=== PATIENT | female | born 1970 | race Caucasian/White ===

== ENCOUNTER 2018-02-28 08:16 | Emergency (ER) | payer MEDICAID, SELFPAY ==
[2018-02-28 08:19] VITALS: BP 161/77; PULSE 83; RESP 16; TEMP 36.5; O2SAT 100
[2018-02-28] MEDS: Diazepam 5 MG TAB PO (09:47)
[2018-02-28] MEDS: Ketorolac 60 MG/2 ML VIAL IM (09:47)
--- NOTE | 2018-02-28 09:47 | ED.GENADUL_ITS ---
Discharge Plan Disposition Patient Disposition: HOME Condition: Stable Discharge Details Chief Complaint: Nk/Back Pain Clinical Impression: Acute exacerbation of chronic low back pain, Back spasm Primary Care Provider: Unknown,Unknown ED Provider: Dori Le Home Meds and New Rx's Prescriptions: No Action Atorvastatin Calcium 20 MG tablet 20 mg PO DAILY Qty: 90 RF: 3 omeprazole 40 MG capsule,delayed release(DR/EC) 40 mg PO DAILY Qty: 90 RF: 3 levothyroxine 75 MCG tablet 75 mcg PO DAILY Qty: 90 RF: 3 aspirin 81 MG tablet,delayed release (DR/EC) 81 mg PO DAILY Qty: 90 RF: 0 fluoxetine 20 MG capsule 60 mg PO DAILY Qty: 90 RF: 5 mirtazapine 7.5 MG tablet 7.5 mg PO HS Qty: 30 RF: 2 meloxicam 7.5 MG tablet 7.5 mg PO DAILY Qty: 30 RF: 2 acetaminophen [Tylenol Extra Strength] 500 mg Tablet 1,000 mg PO Q6H PRNRF: 0 Medical Decision Making 47-year-old female with previous history of chronic back pain and back spasms who presents for midline lower back pain for the past 6 days. She denies any new injury but states she frequently has pinched nerve or herniated discs that flare up. No urinary or cauda equina symptoms. States does not feel similar to previous kidney stones and declines workup for this at this time. Patient states feels like her usual back spasm/herniated disc flareup. Patient has tenderness to palpation of midline and bilateral lumbar paraspinal region. No buttock tenderness. No focal deficits. Neurovascularly intact. Appears musculoskeletal/spasm. Patient was driven here by boyfriend. We will give a dose of Toradol IM and Valium p.o. 0945 -- pt states tramadol usually works for her back pain - Will send with 2 tabs for home. Prescription for valium given. Patient instructed to follow-up with primary care doctor for reevaluation and return here if worse. HPI General Mode of arrival: ambulatory . Date/Time Provider Initiated Documentation: 02/28/18 09:13 . Limitations to Documentation: no limitations . Information obtained by: patient . HPI Narrative: Patient is a 47-year-old female who presents to the ED with a complaint of midline lower back pain for the past 6 days. She denies any new injury but states she has a history of herniated disc and pinched nerve in her back and occasionally acts up. Patient states the pain radiates down her left leg to her left upper calf. Pain is worse with movement, walking, and better with remaining still and heating pad. Patient states he also has used ice, taken Aleve and Tylenol without relief. States it feels like back spasms. She does have a previous history of kidney stones but states this does not feel similar and she denies any fever, nausea, vomiting, abdominal pain, dysuria, hematuria, frequency, urinary or fecal incontinence, leg weakness or numbness. Past medical history: Osteoporosis, anxiety, depression, GERD Surgical history: , D&C, hysterectomy, tooth extraction Social history: Smokes tobacco, denies alcohol or drugs Medications: See list Allergies: Penicillin PCP: [facility] Related Data Home Medications Medication Instructions Recorded Confirmed levothyroxine 75 mcg PO DAILY #90 tab-cap 01/27/17 02/28/18 omeprazole 40 mg PO DAILY #90 tab-cap 01/27/17 02/28/18 aspirin 81 mg PO DAILY #90 tab-cap 03/05/17 02/28/18 fluoxetine 60 mg PO DAILY #90 tab-cap 04/25/17 02/28/18 mirtazapine 7.5 mg PO HS #30 tab-cap 05/29/17 02/28/18 meloxicam 7.5 mg PO DAILY #30 tab-cap 06/03/17 02/28/18 acetaminophen [Tylenol Extra 1,000 mg PO Q6H PRN 02/28/18 02/28/18 Strength] Previous Rx's Medication Instructions Recorded levothyroxine 75 mcg PO DAILY #90 tab-cap 01/27/17 omeprazole 40 mg PO DAILY #90 tab-cap 01/27/17 aspirin 81 mg PO DAILY #90 tab-cap 03/05/17 fluoxetine 60 mg PO DAILY #90 tab-cap 04/25/17 mirtazapine 7.5 mg PO HS #30 tab-cap 05/29/17 meloxicam 7.5 mg PO DAILY #30 tab-cap 06/03/17 Allergies Allergy/AdvReac Type Severity Reaction Status Date / Time bee venom protein (honey bee) Allergy Severe Unverified 02/28/18 08:23 Penicillins Allergy Hives Unverified 02/28/18 08:23 General Stated Complaint: Nk/Back Pain ROSALIND: 4 Review of Systems Review of Systems All systems reviewed & are unremarkable except as noted in HPI and below Constitutional Reports as per HPI, Denies chills and Denies fever(s) Eyes Denies blurry vision ENT Denies dizziness, Denies sore throat and Denies throat swelling Cardiovascular Denies chest pain and Denies dyspnea Respiratory Denies dyspnea Gastrointestinal Denies abdominal pain, Denies diarrhea and Denies vomiting Genitourinary Denies hematuria and Denies dysuria Musculoskeletal Reports back pain and Denies numbness Integumentary/Breasts Denies lesions and Denies rash Neurologic Denies dizziness and Denies numbness Allergic/Immunologic Denies throat swelling PFS Family History PATERNAL AUNT Personal history of malignant neoplasm Mother No problems noted. Father Heart disease Cerebrovascular accident Sister No problems noted. Brother No problems noted. Grandfather No problems noted. Grandfather Personal history of malignant neoplasm Grandmother Diabetes Heart disease Grandmother Heart disease Social History Smoking/Tobacco Use Status: Current every day Surgical History section Dilation and curettage Hysterectomy Ligation of fallopian tube (~1995) Tooth extraction (~06/2011) Exam Const General: cooperative and healthy appearing Orientation: alert and awake HENMT Head: normal to inspection Ears: hearing grossly normal bilaterally and external ears normal General nose exam: external nose normal Face and sinus: normal facial exam Mouth: oral mucosae normal Eyes General: appearance normal, both eyes and all related structures Eyelids: eyelids normal EOM: EOM intact bilaterally Neck Neck: normal visual inspection Lymphatic: no lymphadenopathy noted Chest Chest: normal inspection of the chest Resp Effort & Inspection: normal respiratory effort and able to speak in complete sentences Auscultation: clear to auscultation bilaterally Cardio Rate: regular rate Rhythm: regular rhythm GI Inspection: normal to inspection Palpation: soft, not firm, no guarding, no hepatosplenomegaly, no masses and nontender Auscultation: normal bowel sounds Back/Spine/Pelvis Back: no CVA tenderness Thoracic/Lumbar Spine: thoracic and lumbar spine normal to inspection, thoraco- lumbar spasm, No thoracic spinal tenderness and lumbar spinal tenderness Skin General skin exam: no rashes or lesions noted Neuro General: alert and awake Cognition: normal cognition Speech: speech normal Gait: normal gait Motor: muscle tone normal throughout and other (Strength 5/5 bilateral lower extremities. Straight leg raise negative bilaterally.) Sensory Exam: no sensory deficits noted DTR's: Rt Patellar: 2+, Lt Patellar: 2+, Rt Ankle: 2+ and Lt Ankle: 2+ Plantar Reflexes: Equivocal: bilateral Extrem General: normal to inspection, full ROM and no edema Psych Appearance: grossly normal Mental Status: mental status grossly normal Speech and Movement: speech and movement normal Affect: normal affect Thought Process: normal Course Vital Signs Temperature 97.7 F 02/28/18 08:19 Pulse 83 02/28/18 08:19 Respiratory Rate 16 02/28/18 08:19 Blood Pressure 161/77 H 02/28/18 08:19 Pulse Oximetry 100 02/28/18 08:19 Temperature 97.7 F 02/28/18 08:19 Temperature Source Temporal Artery Scan 02/28/18 08:19 Pulse 83 02/28/18 08:19 Respiratory Rate 16 02/28/18 08:19 Respiratory Effort Non-Labored 02/28/18 08:22 Blood Pressure 161/77 H 02/28/18 08:19 Blood Pressure Position Sitting 02/28/18 08:19 Pulse Oximetry 100 02/28/18 08:19 Oxygen Delivery Method Room Air 02/28/18 08:19 Oxygen Flow Rate 0 02/28/18 08:19 Pain Level 8 02/28/18 08:27
[2018-02-28] MEDS: traMADol 50 MG TAB 100 MG PO (10:07)
== END 2018-02-28 10:07 | disposition home or self-care (01) ==
LOC: ER 10:10
PROVIDERS: Emergency Provider Physician Assistant
DX: M54.5 Low back pain (principal); M62.830 Muscle spasm of back
CPT/HCPCS: 96372; 99284; J1885

== ENCOUNTER 2018-03-02 12:20 | Emergency (ER) | payer MEDICAID, SELFPAY ==
[2018-03-02 12:25] VITALS: BP 153/97; PULSE 80; RESP 16; TEMP 36.7; O2SAT 98
--- NOTE | 2018-03-02 12:47 | W.ED.GENAD ---
Discharge Plan Disposition Patient Disposition: HOME Condition: Stable Discharge Details Chief Complaint: Nk/Back Pain Clinical Impression: Back pain Reason For Visit: back pain Primary Care Provider: None,None ED Provider: Cathryn Mercedes Home Meds and New Rx's Prescriptions: New prednisone 50 mg tablet 50 mg PO DAILY Qty: 4 RF: 0 cyclobenzaprine 5 mg tablet 5 mg PO TID PRN (Reason: back pain) Qty: 9 RF: 0 Continue Atorvastatin Calcium 20 MG tablet 20 mg PO DAILY Qty: 90 RF: 3 omeprazole 40 MG capsule,delayed release(DR/EC) 40 mg PO DAILY Qty: 90 RF: 3 levothyroxine 75 MCG tablet 75 mcg PO DAILY Qty: 90 RF: 3 aspirin 81 MG tablet,delayed release (DR/EC) 81 mg PO DAILY Qty: 90 RF: 0 fluoxetine 20 MG capsule 60 mg PO DAILY Qty: 90 RF: 5 mirtazapine 7.5 MG tablet 7.5 mg PO HS Qty: 30 RF: 2 acetaminophen [Tylenol Extra Strength] 500 mg Tablet 1,000 mg PO Q6H PRNRF: 0 Discontinued diazepam [Valium] 5 mg tablet 5 mg PO TID PRN (Reason: muscle spasm) Qty: 6 RF: 0 Discharge Instructions Instructions: Back Pain (ED), Lower Back Exercises (ED) Additional Instructions: Please return immediately to the emergency department if you develop any new or worsening symptoms or if you become otherwise concerned. It is extremely important that you attend your scheduled appointment in follow-up for this visit at [facility] on March 16 at 10:45 AM. Discharge Data Discharge Date/Time-TO BE ENTERED AT DEPARTURE: 03/02/18 14:15 Medical Decision Making Andree Quiroz is a 47-year-old woman with history of anxiety, depression, GERD, kidney stones, chronic back pain presenting to the emergency department with acute on chronic pack pain over the past several days, improved with tramadol and Valium after visit 02/28 to the emergency department, now worse again after running out of medications last night. On exam patient is very well and nontoxic appearing. There is no midline tenderness of the thoracic, lumbar, or sacral spine. There is no motor or sensory deficit of the lower extremities. Exam/history is not consistent with cauda equina, acute aortic or other vascular pathology, other cord compression including epidural abscess or epidural hematoma, sepsis, renal stone. The PMS report shows that patient filled prescription for 20 clonazepam on 01/22 which was a 30-day amount. Patient reports that she finished clonazepam 1 month ago. Concern for possible overuse of benzodiazepines at this time. Plan for prednisone, Flexeril, UA, U , post void residual. Care management involved for scheduling closer appointment with PMD. Postvoid residual less than 20 cc per nursing. Lengthy discussion with patient regarding return to emergency department precautions and importance of outpatient follow-up with PCP. Patient is amenable to the plan. Medical Records Medical records reviewed: Yes I reviewed the patient's medical records. Lab Data Lab results reviewed: Yes I reviewed the patient's lab results. Lab results narrative: Urine negative per nursing Laboratory Tests Range/Units 03/02/18 13:20 Urine Color (Yellow) Yellow Urine Clarity Clear Urine pH (5-8) 7.0 Ur Specific [place] (1.005-1.025) 1.020 Urine Protein (Negative) mg/dL Trace H Urine Ketones (Negative) mg/dL Trace H Urine Blood (Negative) Negative Urine Nitrite (Negative) Negative Urine Bilirubin (Negative) Small H Urine Urobilinogen (Up TO 0.2) EU/dL 1.0 H Ur Leukocyte Esterase (Negative) Negative Urine RBC (0-2) 0-2 Urine WBC (0-5) HPF 0-2 Ur Epithelial Cells (Negative) HPF Moderate Urine Crystals (Negative) HPF Negative Urine Bacteria (Negative) HPF Moderate Urine Casts (Negative) LPF Negative Urine Mucus (Negative) Trace Urine Other (Negative) Rare yeast Ur Culture Indicated? No/sq. contamination Urine Glucose (Negative) mg/dL Negative HPI General Mode of arrival: ambulatory. Date/Time Provider Initiated Documentation: 03/02/18 12:47. Limitations to Documentation: no limitations. Information obtained by: patient, RN notes reviewed and old records reviewed. HPI Narrative: Andree Quiroz is a 47-year-old woman with history of anxiety, depression, GERD, kidney stones, chronic back pain presenting to the emergency department with acute on chronic back pain. Patient reports that she is having midline low back pain that radiates down the left leg and up to the right scapula. There was no injury, trauma, or inciting event that she remembers. She is having no other pain, no numbness/tingling, no weakness, no changes in her urinary function, no changes in bowel function, no shortness of breath, no cough, no fevers. No history of IVDU, not on blood thinners. Patient was seen here 2 days ago, 02/28, for same complaint. She was treated at that time with Toradol, 2 tramadol, and prescription for 6 tabs of Valium. Patient reports that she ran out of medications last night. She reports that medications did help her, although her pain seems unchanged at this point. Pain has not changed at all in location or quality since onset. She has an initial appointment with [facility] on March 20. Patient reports that she has had similar back pain multiple times in the past, and this episode has no unusual or atypical features, same location (including radiation down left leg and to left scapula), same quality, same duration, same severity. Patient reports that she is also feeling very anxious. She reports that she is supposed to be taking clonazepam for her anxiety, although she ran out one month ago of her recent prescription and is waiting her appointment with her PCP for new benzo prescription. She denies recent illness, recent travel. Has been eating and drinking as usual. Related Data Home Medications Medication Instructions Recorded Confirmed levothyroxine 75 mcg PO DAILY #90 tab-cap 01/27/17 03/02/18 omeprazole 40 mg PO DAILY #90 tab-cap 01/27/17 03/02/18 aspirin 81 mg PO DAILY #90 tab-cap 03/05/17 03/02/18 fluoxetine 60 mg PO DAILY #90 tab-cap 04/25/17 03/02/18 mirtazapine 7.5 mg PO HS #30 tab-cap 05/29/17 03/02/18 acetaminophen [Tylenol Extra 1,000 mg PO Q6H PRN 02/28/18 03/02/18 Strength] cyclobenzaprine 5 mg PO TID PRN #9 tab 03/02/18 prednisone 50 mg PO DAILY #4 tab 03/02/18 Previous Rx's Medication Instructions Recorded levothyroxine 75 mcg PO DAILY #90 tab-cap 01/27/17 omeprazole 40 mg PO DAILY #90 tab-cap 01/27/17 aspirin 81 mg PO DAILY #90 tab-cap 03/05/17 fluoxetine 60 mg PO DAILY #90 tab-cap 04/25/17 mirtazapine 7.5 mg PO HS #30 tab-cap 05/29/17 cyclobenzaprine 5 mg PO TID PRN #9 tab 03/02/18 prednisone 50 mg PO DAILY #4 tab 03/02/18 Allergies Allergy/AdvReac Type Severity Reaction Status Date / Time bee venom protein (honey bee) Allergy Severe Unverified 03/02/18 12:31 Penicillins Allergy Hives Unverified 03/02/18 12:31 General Stated Complaint: Nk/Back Pain ROSALIND: 4 Review of Systems Review of Systems Constitutional: denies fevers Eyes: denies eye pain ENT: denies facial pain, dental pain, sore throat Cardiovascular: denies chest pain, edema Respiratory: denies SOB, cough GI: denies abdominal pain, vomiting, diarrhea : denies flank pain MSK: reports back pain, denies neck pain, arthralgias, myalgias Skin: denies rash Neuro: denies headaches, lightheadedness, weakness PFSH Social History Smoking/Tobacco Use Status: Current every day Exam Narrative Exam Narrative: Constitutional: well and [id number], pleasant, conversing normally HENT: head atraumatic, normocephalic normal inspection, mucous membranes moist Eyes: conjunctiva normal, sclera normal, pupils 3mm b/l Neck: no stridor, normal ROM, trachea midline Chest: normal inspection Resp: normal work of breathing, LCTAB Cardio: normal rate, normal rhythm, no murmur appreciated GI: abdomen soft, non-tender, non-distended Back: normal inspection, no rash, thoracic, lumbar, sacral spine and paraspinals nontender to palpation, no scapular tenderness Skin: warm, dry, normal color, no rash Neuro: alert, not altered, motor 5 out of 5 bilateral lower extremities, no sensory deficit bilateral lower extremities, otherwise grossly nonfocal, normal tone, normal gait Ext: no edema Psych: normal mood, normal affect, normal behavior Course Vital Signs Temperature 36.7 C 03/02/18 12:25 Pulse 80 03/02/18 12:25 Respiratory Rate 16 03/02/18 12:25 Blood Pressure 153/97 H 03/02/18 12:25 Pulse Oximetry 98 03/02/18 12:25 Temperature 36.7 C 03/02/18 12:25 Temperature Source Temporal Artery Scan 03/02/18 12:25 Pulse 80 03/02/18 12:25 Respiratory Rate 16 03/02/18 12:25 Respiratory Effort Non-Labored 03/02/18 12:37 Blood Pressure 153/97 H 03/02/18 12:25 Blood Pressure Position Sitting 03/02/18 12:25 Pulse Oximetry 98 03/02/18 12:25 Oxygen Delivery Method Room Air 03/02/18 12:25 Oxygen Flow Rate 0 03/02/18 12:25 Pain Level 9 03/02/18 12:38
--- NOTE | 2018-03-02 12:50 | ED.GENADUL_ITS ---
Discharge Plan Disposition Patient Disposition: HOME Condition: Stable Discharge Details Chief Complaint: Nk/Back Pain Clinical Impression: Back pain Reason For Visit: back pain Primary Care Provider: None,None ED Provider: Cathryn Mercedes Home Meds and New Rx's Prescriptions: New prednisone 50 mg tablet 50 mg PO DAILY Qty: 4 RF: 0 cyclobenzaprine 5 mg tablet 5 mg PO TID PRN (Reason: back pain) Qty: 9 RF: 0 Continue Atorvastatin Calcium 20 MG tablet 20 mg PO DAILY Qty: 90 RF: 3 omeprazole 40 MG capsule,delayed release(DR/EC) 40 mg PO DAILY Qty: 90 RF: 3 levothyroxine 75 MCG tablet 75 mcg PO DAILY Qty: 90 RF: 3 aspirin 81 MG tablet,delayed release (DR/EC) 81 mg PO DAILY Qty: 90 RF: 0 fluoxetine 20 MG capsule 60 mg PO DAILY Qty: 90 RF: 5 mirtazapine 7.5 MG tablet 7.5 mg PO HS Qty: 30 RF: 2 acetaminophen [Tylenol Extra Strength] 500 mg Tablet 1,000 mg PO Q6H PRNRF: 0 Discontinued diazepam [Valium] 5 mg tablet 5 mg PO TID PRN (Reason: muscle spasm) Qty: 6 RF: 0 Discharge Instructions Instructions: Back Pain (ED), Lower Back Exercises (ED) Additional Instructions: Please return immediately to the emergency department if you develop any new or worsening symptoms or if you become otherwise concerned. It is extremely important that you attend your scheduled appointment in follow-up for this visit at [facility] on March 16 at 10:45 AM. Discharge Data Discharge Date/Time-TO BE ENTERED AT DEPARTURE: 03/02/18 14:15 Medical Decision Making Andree Quiroz is a 47-year-old woman with history of anxiety, depression, GERD, kidney stones, chronic back pain presenting to the emergency department with acute on chronic pack pain over the past several days, improved with tramadol and Valium after visit 02/28 to the emergency department, now worse again after running out of medications last night. On exam patient is very well and nontoxic appearing. There is no midline tenderness of the thoracic, lumbar, or sacral spine. There is no motor or sensory deficit of the lower extremities. Exam/history is not consistent with cauda equina, acute aortic or other vascular pathology, other cord compression including epidural abscess or epidural hematoma, sepsis, renal stone. The PMS report shows that patient filled prescription for 20 clonazepam on 01/22 which was a 30-day amount. Patient reports that she finished clonazepam 1 month ago. Concern for possible overuse of benzodiazepines at this time. Plan for prednisone, Flexeril, UA, U , post void residual. Care management involved for scheduling closer appointment with PMD. Postvoid residual less than 20 cc per nursing. Lengthy discussion with patient regarding return to emergency department precautions and importance of outpatient follow-up with PCP. Patient is amenable to the plan. Medical Records Medical records reviewed: Yes I reviewed the patient's medical records. Lab Data Lab results reviewed: Yes I reviewed the patient's lab results. Lab results narrative: Urine negative per nursing Laboratory Tests Range/Units 03/02/18 13:20 Urine Color (Yellow) Yellow Urine Clarity Clear Urine pH (5-8) 7.0 Ur Specific [place] (1.005-1.025) 1.020 Urine Protein (Negative) mg/dL Trace H Urine Ketones (Negative) mg/dL Trace H Urine Blood (Negative) Negative Urine Nitrite (Negative) Negative Urine Bilirubin (Negative) Small H Urine Urobilinogen (Up TO 0.2) EU/dL 1.0 H Ur Leukocyte Esterase (Negative) Negative Urine RBC (0-2) 0-2 Urine WBC (0-5) HPF 0-2 Ur Epithelial Cells (Negative) HPF Moderate Urine Crystals (Negative) HPF Negative Urine Bacteria (Negative) HPF Moderate Urine Casts (Negative) LPF Negative Urine Mucus (Negative) Trace Urine Other (Negative) Rare yeast Ur Culture Indicated? No/sq. contamination Urine Glucose (Negative) mg/dL Negative HPI General Mode of arrival: ambulatory . Date/Time Provider Initiated Documentation: 03/02/18 12:47 . Limitations to Documentation: no limitations . Information obtained by: patient, RN notes reviewed and old records reviewed . HPI Narrative: Andree Quiroz is a 47-year-old woman with history of anxiety, depression, GERD, kidney stones, chronic back pain presenting to the emergency department with acute on chronic back pain. Patient reports that she is having midline low back pain that radiates down the left leg and up to the right scapula. There was no injury, trauma, or inciting event that she remembers. She is having no other pain, no numbness/tingling, no weakness, no changes in her urinary function, no changes in bowel function, no shortness of breath, no cough, no fevers. No history of IVDU, not on blood thinners. Patient was seen here 2 days ago, 02/28, for same complaint. She was treated at that time with Toradol, 2 tramadol, and prescription for 6 tabs of Valium. Patient reports that she ran out of medications last night. She reports that medications did help her, although her pain seems unchanged at this point. Pain has not changed at all in location or quality since onset. She has an initial appointment with [facility] on March 20. Patient reports that she has had similar back pain multiple times in the past, and this episode has no unusual or atypical features, same location (including radiation down left leg and to left scapula), same quality, same duration, same severity. Patient reports that she is also feeling very anxious. She reports that she is supposed to be taking clonazepam for her anxiety, although she ran out one month ago of her recent prescription and is waiting her appointment with her PCP for new benzo prescription. She denies recent illness, recent travel. Has been eating and drinking as usual. Related Data Home Medications Medication Instructions Recorded Confirmed levothyroxine 75 mcg PO DAILY #90 tab-cap 01/27/17 03/02/18 omeprazole 40 mg PO DAILY #90 tab-cap 01/27/17 03/02/18 aspirin 81 mg PO DAILY #90 tab-cap 03/05/17 03/02/18 fluoxetine 60 mg PO DAILY #90 tab-cap 04/25/17 03/02/18 mirtazapine 7.5 mg PO HS #30 tab-cap 05/29/17 03/02/18 acetaminophen [Tylenol Extra 1,000 mg PO Q6H PRN 02/28/18 03/02/18 Strength] cyclobenzaprine 5 mg PO TID PRN #9 tab 03/02/18 prednisone 50 mg PO DAILY #4 tab 03/02/18 Previous Rx's Medication Instructions Recorded levothyroxine 75 mcg PO DAILY #90 tab-cap 01/27/17 omeprazole 40 mg PO DAILY #90 tab-cap 01/27/17 aspirin 81 mg PO DAILY #90 tab-cap 03/05/17 fluoxetine 60 mg PO DAILY #90 tab-cap 04/25/17 mirtazapine 7.5 mg PO HS #30 tab-cap 05/29/17 cyclobenzaprine 5 mg PO TID PRN #9 tab 03/02/18 prednisone 50 mg PO DAILY #4 tab 03/02/18 Allergies Allergy/AdvReac Type Severity Reaction Status Date / Time bee venom protein (honey bee) Allergy Severe Unverified 03/02/18 12:31 Penicillins Allergy Hives Unverified 03/02/18 12:31 General Stated Complaint: Nk/Back Pain ROSALIND: 4 Review of Systems Review of Systems Constitutional: denies fevers Eyes: denies eye pain ENT: denies facial pain, dental pain, sore throat Cardiovascular: denies chest pain, edema Respiratory: denies SOB, cough GI: denies abdominal pain, vomiting, diarrhea : denies flank pain MSK: reports back pain, denies neck pain, arthralgias, myalgias Skin: denies rash Neuro: denies headaches, lightheadedness, weakness PFSH Social History Smoking/Tobacco Use Status: Current every day Exam Narrative Exam Narrative: Constitutional: well and [id number], pleasant, conversing normally HENT: head atraumatic, normocephalic normal inspection, mucous membranes moist Eyes: conjunctiva normal, sclera normal, pupils 3mm b/l Neck: no stridor, normal ROM, trachea midline Chest: normal inspection Resp: normal work of breathing, LCTAB Cardio: normal rate, normal rhythm, no murmur appreciated GI: abdomen soft, non-tender, non-distended Back: normal inspection, no rash, thoracic, lumbar, sacral spine and paraspinals nontender to palpation, no scapular tenderness Skin: warm, dry, normal color, no rash Neuro: alert, not altered, motor 5 out of 5 bilateral lower extremities, no sensory deficit bilateral lower extremities, otherwise grossly nonfocal, normal tone, normal gait Ext: no edema Psych: normal mood, normal affect, normal behavior Course Vital Signs Temperature 36.7 C 03/02/18 12:25 Pulse 80 03/02/18 12:25 Respiratory Rate 16 03/02/18 12:25 Blood Pressure 153/97 H 03/02/18 12:25 Pulse Oximetry 98 03/02/18 12:25 Temperature 36.7 C 03/02/18 12:25 Temperature Source Temporal Artery Scan 03/02/18 12:25 Pulse 80 03/02/18 12:25 Respiratory Rate 16 03/02/18 12:25 Respiratory Effort Non-Labored 03/02/18 12:37 Blood Pressure 153/97 H 03/02/18 12:25 Blood Pressure Position Sitting 03/02/18 12:25 Pulse Oximetry 98 03/02/18 12:25 Oxygen Delivery Method Room Air 03/02/18 12:25 Oxygen Flow Rate 0 03/02/18 12:25 Pain Level 9 03/02/18 12:38
[2018-03-02 13:36] LABS: Bilirubin Small (Negative); Blood Negative (Negative); Clarity Clear; Glucose Negative (Negative); Ketones Trace mg/dL (Negative); Leukocyte Esterase Negative (Negative); Nitrite Negative (Negative)
[2018-03-02 13:46] LABS: RBC 0-2 (0-2); WBC 0-2 HPF (0-5)
[2018-03-02 13:47] LABS: Bacteria Moderate HPF (Negative); C & S Indicated? No/Sq. Contamination; Casts Negative LPF (Negative); Crystals Negative HPF (Negative); Epithelial Cells Moderate HPF (Negative); Mucus Trace (Negative); Other Cells Rare Yeast (Negative)
[2018-03-02] MEDS: predniSONE 20 MG TAB 60 MG PO (13:55)
[2018-03-02] MEDS: Cyclobenzaprine 10 MG TAB PO (13:55)
[2018-03-02] MEDS: Ondansetron O.D.T. 4 MG TABEF PO (14:10)
--- NOTE | 2018-03-02 14:13 | PDOC.ERCMPRO ---
- If Service Date Differs Date of service: 03/02/18 Time of Service: 14:13 Care Management Progress Note CM received notification from Dr. Summer Mercedes that Andree was in the ER this weekend and back today due to back pain. Dr. Mercedes requested that this telegraphic typewriter mechanic contact Dr. Cali's office as he was recently Andree's PCP and she is changing practices. Dr. Cali is unavailable today, however this telegraphic typewriter mechanic spoke with Jahaira, Emergency Line [facility], whom states that it is noted that Andree was last seen at [facility] in May and transferred care as she moved to [place] and started at [facility]. CM spoke with Sari [facility], whom transferred this telegraphic typewriter mechanic to the triage line. The triage line notified this telegraphic typewriter mechanic that Andree called [facility] this morning and requested an earlier appointment, this telegraphic typewriter mechanic was also notified that Andree has received care through [facility] as well in the past and is currently requesting pain medications from [facility]. CM was able to obtain an earlier appointment for Saturday 03/10 @ [id number] with Sana Manzo. CM notified Dr. Summer Mercedes of the above.
--- NOTE | 2018-03-02 14:18 | CMPROGNOTE_ITS ---
- If Service Date Differs Date of service: 03/02/18 Time of Service: 14:13 Care Management Progress Note CM received notification from Dr. Summer Mercedes that Andree was in the ER this weekend and back today due to back pain. Dr. Mercedes requested that this telegraphic typewriter repairer contact Dr. Cali's office as he was recently Andree's PCP and she is changing practices. Dr. Cali is unavailable today, however this telegraphic typewriter repairer spoke with Jahaira, Emergency Line [facility], whom states that it is noted that Andree was last seen at [facility] in May and transferred care as she moved to [place] and started at [facility]CP. CM spoke with Sari [facility], whom transferred this telegraphic typewriter repairer to the triage line. The triage line notified this telegraphic typewriter repairer that Andree called [facility] this morning and requested an earlier appointment, this telegraphic typewriter repairer was also notified that Andree has received care through [facility] as well in the past and is currently requesting pain medications from [facility]. CM was able to obtain an earlier appointment for Saturday 03/10 @ [id number] with Sana Manzo. CM notified Dr. Summer Mercedes of the above.
== END 2018-03-02 14:15 | disposition home or self-care (01) ==
LOC: ER 14:38
PROVIDERS: Emergency Provider Student in an Organized Health Care Education/Training Program
DX: M54.5 Low back pain (principal); G89.29 Other chronic pain
CPT/HCPCS: 81025; 99283; 81003; 81015; J7512

== ENCOUNTER 2018-04-02 14:33 | Emergency (ER) | payer MEDICAID, SELFPAY ==
[2018-04-02 14:41] VITALS: BP 142/96; PULSE 94; RESP 16; TEMP 36.7; O2SAT 98
--- NOTE | 2018-04-02 15:08 | NUR.NOTE ---
Nursing Note: THis tag writer triage patient and placed her in the RWR telling her it is busy in the ER and we will get to her as soon as we can. Registration witnessed patient elope from the ER on the phone out the ER doors. Patient not longer in the RWR or in the waiting room.
== END 2018-04-02 15:08 | disposition left before discharge ==
LOC: ER 14:56
DX: Z53.21 Procedure and treatment not carried out due to patient leaving prior to being seen by health care provider (principal)

== ENCOUNTER 2018-04-06 13:48 | Emergency (ER) | payer MEDICAID, SELFPAY ==
[2018-04-06 14:11] VITALS: BP 151/84; PULSE 95; RESP 16; TEMP 37.1; O2SAT 97
[2018-04-06 14:42] LABS: Abs Immature Grans 0.02 k/cumm (0.0-0.09); Absolute Basophil Count 0.16 k/cumm (0.0-0.2); Absolute Eosinophil Count 0.62 k/cumm (0.0-0.7); Absolute Lymphocyte Count 3.65 k/cumm (1.2-3.4); Absolute Monocyte Count 0.66 k/cumm (0.11-0.7); Absolute Neutrophil Count 5.66 k/cumm (1.2-6.7); Basophils % 1.5; Eosinophils % 5.8; HCT 41.6 % (36.0-46.0); HGB 13.5 g/dL (12.0-15.5); Immature Grans % 0.2; Lymphocytes % 33.9; Mean Corp. HGB Concentration 32.5 g/dL (32.0-36.0); Mean Corpuscular Hemoglobin 25.9 pg (27.0-33.0); Mean Corpuscular Volume 79.8 fL (80-95); Mean Platelet Volume 10.6 fL (8.0-11.0); Monocytes % 6.1; Neutrophils % 52.5; Platelet Count 218 x1000/uL (130-400); RBC 5.21 m/cumm (4.00-5.20); RBC Distribution Width 15.4 % (11.7-14.6); White Blood Cell Count 10.77 k/cumm (4.4-10.8)
--- NOTE | 2018-04-06 14:48 | DI.CT_ITS ---
SYMPTOMS/DIAGNOSIS: DIZZY, WEAKNESS NONCONTRAST HEAD CT: There are no prior comparison exams. No intracranial hemorrhage, mass or infarct is seen. The ventricles are normal in size. The orbits are unremarkable. The visualized portions of the sinuses and mastoid air cells appear clear. IMPRESSION: Negative head CT.
[2018-04-06] MEDS: Meclizine 25 MG TAB PO (14:52)
[2018-04-06] MEDS: Normal Saline 1,000 ML 1000 ML IV (14:54)
[2018-04-06 15:18] LABS: ALT 61 U/L (12-78); AST 41 U/L (15-37); Albumin 4.1 g/dL (3.4-5.0); Alkaline Phosphatase 85 U/L (46-116); BUN 8 mg/dL (7-18); Bilirubin, Total 0.4 mg/dL (0.2-1.0); CREATININE 0.86 mg/dL (0.55-1.02); Calcium 9.5 mg/dL (8.5-10.1); Chloride 104 mmol/L (98-107); Glucose 102 mg/dL (70-100); Potassium 3.4 mmol/L (3.5-5.1); Sodium 143 mmol/L (136-145); TSH (W/Ref FT4) 1.51 uIU/mL (0.358-3.74); Total Protein 7.9 g/dL (6.4-8.2)
[2018-04-06 15:22] LABS: Troponin I < 0.02 ng/mL (0.00-0.06)
[2018-04-06 15:40] VITALS: PULSE 83; RESP 16
[2018-04-06 15:46] VITALS: BP 142/129; PULSE 53; O2SAT 99
[2018-04-06 15:50] VITALS: BP 136/98; PULSE 81; O2SAT 100
[2018-04-06 15:51] VITALS: O2SAT 99
--- NOTE | 2018-04-06 16:04 | ED.GENADUL_ITS ---
Discharge Plan Disposition Patient Disposition: HOME Condition: Good Discharge Details Chief Complaint: Dizzy/Sync Clinical Impression: Acute dehydration, Dizziness Reason For Visit: weakness Primary Care Provider: None,None ED Provider: Ed Wakefield Home Meds and New Rx's Prescriptions: No Action Atorvastatin Calcium 20 MG tablet 20 mg PO DAILY Qty: 90 RF: 3 omeprazole 40 MG capsule,delayed release(DR/EC) 40 mg PO DAILY Qty: 90 RF: 3 levothyroxine 75 MCG tablet 75 mcg PO DAILY Qty: 90 RF: 3 aspirin 81 MG tablet,delayed release (DR/EC) 81 mg PO DAILY Qty: 90 RF: 0 fluoxetine 20 MG capsule 60 mg PO DAILY Qty: 90 RF: 5 mirtazapine 7.5 MG tablet 7.5 mg PO HS Qty: 30 RF: 2 acetaminophen [Tylenol Extra Strength] 500 mg Tablet 1,000 mg PO Q6H PRNRF: 0 cyclobenzaprine 5 mg tablet 5 mg PO TID PRN (Reason: back pain) Qty: 9 RF: 0 methocarbamol 500 mg Tablet 500 mg PO Q4H PRN PRNRF: 0 Discharge Instructions Instructions: Dehydration (ED), Dizziness (ED) Additional Instructions: Please drink 8-12 cups of water per day. Please avoid energy drinks. If you notice any worsening of your symptoms, or any new symptoms such as vomiting, diarrhea, fever, chills, shortness of breath, chest pain, numbness, weakness, or fainting , please return immediately to the emergency department for reevaluation. Please follow up with your primary care provider as soon as possible for reassessment and reevaluation. As always, it was a pleasure participating in your medical care today. Discharge Data Discharge Date/Time-TO BE ENTERED AT DEPARTURE: 04/06/18 16:09 Medical Decision Making This is a 47-year-old female who presents for evaluation of dizziness, mild lightheadedness, that occurred roughly 1 hour ago after drinking an energy drink. Patient's physical exam demonstrates no significant neurologic deficits, no abnormalities. She does describe a room spinning sensation with her dizziness and she denies any syncope. The patient did appear mild to moderately dehydrated on exam. Vitals are stable and reassuring. Patient was rehydrated. EKG demonstrates no significant abnormalities. CT scan of the head is benign with no evidence of abnormalities. Laboratory workup demonstrates normal electrolytes, normal renal function negative troponin and normal TSH. On reassessment the patient is feeling much better. I feel her symptoms may be secondary to combination of dehydration, her energy drink, and may be mild peripheral vertigo. With resolution of her symptoms I feel she can be safely discharged home with close follow-up. I see no signs of neurologic deficit or signs or symptoms concerning for stroke. We discussed red flags which to return, the importance of decreasing caffeine intake, and staying well-hydrated. I have extensively reviewed the treatment plan and discharge instructions with the patient and their family. I have addressed all patient concerns at this time. The patient and family was made aware of what symptoms to monitor for that would warrant a return to the emergency department. Discussed the plan with the patient and family, they demonstrate verbal understanding and agreement with our assessment and plan at this time. EKG 14: 07 Rate 91, QTc slightly prolonged at 480, UT 152, QRS 104, sinus rhythm, no significant ST elevations or depressions, no T wave inversions. No Q waves. No delta wave or epsilon wave. No evidence of arrhythmia. Per Dr. Thomas CT scan of the head is negative NONCONTRAST HEAD CT: There are no prior comparison exams. No intracranial hemorrhage, mass or infarct is seen. The ventricles are normal in size. The orbits are unremarkable. The visualized portions of the sinuses and mastoid air cells appear clear. IMPRESSION: Negative head CT. HPI General Date/Time Provider Initiated Documentation: 04/06/18 14:31 . HPI Narrative: This is a 47-year-old female with a past medical history of diabetes, thyroid disease, and anxiety who presents today for evaluation of dizziness. Patient states that she recently stopped drinking caffeine then today roughly 1- 2 hours ago she had a or G drink. Not too long after this while she was sitting in the car with her she became dizzy, lightheaded, and had a room spinning sensation. This lasted roughly 1 hour. He came to the ER for further evaluation. At the time of arrival symptoms had resolved. There was no associated tinnitus. She denies headache, vision changes, chest pain, shortness of breath, numbness, tingling, or weakness. She denies any nausea, vomiting, or diarrhea. She has not had symptoms like this in the past. Patient does admit to feeling slightly fatigued, but denies any other modifying factors. She denies any recent history of surgery, IV illicit drug use, or pertinent family history. Past surgical history is positive for hysterectomy. Related Data Home Medications Medication Instructions Recorded Confirmed levothyroxine 75 mcg PO DAILY #90 tab-cap 01/27/17 04/06/18 omeprazole 40 mg PO DAILY #90 tab-cap 17 04/06/18 aspirin 81 mg PO DAILY #90 tab-cap 03/05/17 04/06/18 fluoxetine 60 mg PO DAILY #90 tab-cap 04/25/17 04/06/18 mirtazapine 7.5 mg PO HS #30 tab-cap 05/29/17 04/06/18 acetaminophen [Tylenol Extra 1,000 mg PO Q6H PRN 02/28/18 04/06/18 Strength] cyclobenzaprine 5 mg PO TID PRN #9 tab 03/02/18 04/06/18 methocarbamol 500 mg PO Q4H PRN PRN 04/06/18 04/06/18 Previous Rx's Medication Instructions Recorded levothyroxine 75 mcg PO DAILY #90 tab-cap 01/27/17 omeprazole 40 mg PO DAILY #90 tab-cap 01/27/17 aspirin 81 mg PO DAILY #90 tab-cap 03/05/17 fluoxetine 60 mg PO DAILY #90 tab-cap 04/25/17 mirtazapine 7.5 mg PO HS #30 tab-cap 05/29/17 cyclobenzaprine 5 mg PO TID PRN #9 tab 03/02/18 Allergies Allergy/AdvReac Type Severity Reaction Status Date / Time bee venom protein (honey bee) Allergy Severe Unverified 04/02/18 14:48 Penicillins Allergy Hives Unverified 04/02/18 14:48 General Stated Complaint: Dizzy/Sync ROSALIND: 2 Review of Systems Review of Systems All systems reviewed & are unremarkable except as noted in HPI and below PFSH Social History Smoking/Tobacco Use Status: Current every day Exam Narrative Exam Narrative: 1.Const: Well-nourished, Well-developed, appearing stated age 2.Eyes: PERRL, no conjunctival injection, and symmetrical lids. Cerebellar function testing is normal. The patient demonstrates a normal hints exam with no findings concerning for a central event. No vertical nystagmus. The head impulse test is negative for any significant central abnormality. Normal test of skew. No suggestion of a central cerebellar event. 3.ENT: Atraumatic external nose and ears. Dry MM. Neck: Symmetric, trachea midline, No thyromegaly. 4.CVS: +S1/S2, No murmurs or gallops. Peripheral pulses 2+ and equal in all extremities. Brisk capillary refill in all extremities. 5.RESP: Unlabored respiratory effort. Clear to auscultation bilaterally. No wheezes rales or rhonchi 6.GI: Soft, Nontender/Nondistended, No hepatosplenomegaly. No guarding or rebound. 7.MSK: Normocephalic/Atraumatic, Extremities w/o deformity or ttp No cyanosis or clubbing, Normal movement of all extremities 8.Skin: Warm, Dry. No rashes or lesions. 9.Neuro: surgical dental assistant II-XII grossly intact. Sensation grossly intact, no focal neurologic deficits. All 6 cardinal planes of vision are fully intact. No evidence of rotatory or vertical nystagmus. The patient demonstrated a normal [id number], good dexterity. There was no evidence of dysdiadochokinesia. Patient was able to ambulate without difficulty. There was no wide-based gait. Romberg, and [id number] are both normal on testing. Sensation was intact bilaterally as well as muscle strength bilaterally for all extremities. Patient was able to verbalize butter cup with no slurring, or miss pronunciation. 10.Psych: (AAO) x3. Appropriate mood and affect Course Vital Signs Temperature 37.1 C 04/06/18 14:11 Pulse 95 H 04/06/18 14:11 Respiratory Rate 16 04/06/18 14:11 Blood Pressure 151/84 H 04/06/18 14:11 Pulse Oximetry 97 04/06/18 14:11 Temperature 37.1 C 04/06/18 14:11 Temperature Source Temporal Artery Scan 04/06/18 14:11 Pulse 95 H 04/06/18 14:11 Pulse 83 04/06/18 15:40 Respiratory Rate 16 04/06/18 15:40 Respiratory Effort 04/06/18 14:21 Blood Pressure 151/84 H 04/06/18 14:11 Pulse Oximetry 97 04/06/18 14:11 Oxygen Delivery Method Room Air 04/06/18 14:11 Oxygen Flow Rate 0 04/06/18 14:11 Pain Level 0 04/06/18 14:11 Lab/Test Results Lab/Test Results: Laboratory Tests Range/Units 04/06/18 04/06/18 14:12 14:12 WBC (4.4-10.8) k/cumm 10.77 RBC (4.00-5.20) m/cumm 5.21 H Hgb (12.0-15.5) g/dL 13.5 Hct (36.0-46.0) % 41.6 MCV (80-95) fL 79.8 L MCH (27.0-33.0) pg 25.9 L MCHC (32.0-36.0) g/dL 32.5 RDW (11.7-14.6) % 15.4 H Plt Count (130-400) x1000/uL 218 MPV (8.0-11.0) fL 10.6 Immature Gran % 0.2 Neutrophils % 52.5 Lymphocytes % 33.9 Monocytes % 6.1 Eosinophils % 5.8 Basophils % 1.5 Absolute Neutrophils (1.2-6.7) k/cumm 5.66 Absolute Lymphocytes (1.2-3.4) k/cumm 3.65 H Absolute Monocytes (0.11-0.7) k/cumm 0.66 Absolute Eosinophils (0.0-0.7) k/cumm 0.62 Absolute Basophils (0.0-0.2) k/cumm 0.16 Sodium (136-145) mmol/L 143 Potassium (3.5-5.1) mmol/L 3.4 L Chloride (98-107) mmol/L 104 Carbon Dioxide (21.0-32.0) mmol/L 28.0 Anion Gap (3-11) mmol/L 11.0 BUN (7-18) mg/dL 8 Creatinine (0.55-1.02) mg/dL 0.86 Estimated GFR/1.73 m2 (mL/min/1.73m2) >= 60.00 Glucose (70-100) mg/dL 102 H Calcium (8.5-10.1) mg/dL 9.5 Total Bilirubin (0.2-1.0) mg/dL 0.4 AST (15-37) U/L 41 H ALT (12-78) U/L 61 Alkaline Phosphatase (46-116) U/L 85 Troponin I (0.00-0.06) ng/mL < 0.02 Total Protein (6.4-8.2) g/dL 7.9 Albumin (3.4-5.0) g/dL 4.1 TSH (0.358-3.74) uIU/mL 1.51
[2018-04-06 16:08] VITALS: BP 136/98; PULSE 81; RESP 16; TEMP 37.1; O2SAT 99
== END 2018-04-06 16:09 | disposition home or self-care (01) ==
PROVIDERS: Emergency Provider Student in an Organized Health Care Education/Training Program
DX: E86.0 Dehydration (principal); R42 Dizziness and giddiness; F17.210 Nicotine dependence, cigarettes, uncomplicated
CPT/HCPCS: 36415; 80053; 93005; 96360; 99285; 70450; 84443; 84484; 85025; 93010